=== PATIENT | male | born 1985 | race African-American/Black ===

== ENCOUNTER 2018-03-19 11:21 | Inpatient (IN) ==
[2018-03-19] MEDS ORDERED: Clindamycin 600 mg/NS Premix 600 MG/50 ML PIGGYBACK IV.SIG ONE (12:44)
--- NOTE | 2018-03-19 12:51 | ED ---
HPI General Chief complaint: Dental/Oral Stated complaint: dental pain/ infection Time Seen by Provider: 03/19/18 12:35 Source: patient and RN notes reviewed Mode of arrival: ambulatory Limitations: no limitations History of Present Illness HPI Narrative: 32-year-old male presents to the emergency department for evaluation of facial swelling and dental pain. Patient states that he cracked his right back molar yesterday he was picking up pieces of his tooth. He says the last night, he started with lower facial swelling. He states it felt like a ball. States it is slightly improved now, but still present. He reports 10/ 10 pain. No fevers. He has no chronic medical problems and takes no prescribed medications. No other symptoms or complaints. Moderate severity. 2 1. Broken and painful Onset (ago): day(s) (1) Duration: constant Severity: moderate Severity scale (1-10): 10 Relieving factors: nothing Exacerbating factors: chewing and swallowing Associated symptoms: gum swelling and other (Facial swelling) Treatment prior to arrival: oral analgesic (Ibuprofen) Related Data Home Medications Medication Instructions Recorded Confirmed Tylenol 1 tab PO DIRECTED 03/19/18 03/19/18 Allergies Allergy/AdvReac Type Severity Reaction Status Date / Time No Known Allergies Allergy none Uncoded 03/19/18 12:18 Review of Systems ROS: all other systems reviewed are negative PMFSH Medical History Medical History Patient denies medical problems (Acute) Surgical History Surgical History No history of previous surgery (Acute) Social History Social History Substance History: No History of Abuse Smoking Status: Current every day smoker Tobacco Type: Cigarettes How Often Do You Have a Drink Containing Alcohol: 2 to 4 times a month Recent Travel in [facility] within the Last 8 Weeks: No Recent Out of Country Travel within the Last 8 Weeks: No Immunization History Tetanus Immunization: Unsure Hx Influenza Vaccine This Season: No Exam Narrative Exam Narrative: GENERAL: Well-nourished, well-developed male patient, afebrile SKIN: Focused skin assessment warm/dry. HEAD: Normocephalic. Atraumatic. Patient has right lower facial swelling that extends beyond the mandibular edge. ENT: Mucosa pink and moist. No erythema or exudates. No uvular edema. No uvular , palatal, or tonsillar deviation. Airway patent. Nasal turbinates appear normal without nasal blood, purulent drainage or septal hematoma. Bilateral tympanic membranes clear without erythema or perforation. Tooth #32 is broken. He is tender to palpation over the gingiva. He does have some trismus noted. EYES: No scleral icterus. No injection or drainage. NECK: Supple, trachea midline. No JVD or lymphadenopathy. CARDIOVASCULAR: Regular rate and rhythm without murmurs, gallops, or rubs. RESPIRATORY: Breath sounds equal bilaterally. No accessory muscle use. Lung sounds are clear to auscultation. GASTROINTESTINAL: Abdomen soft, non-tender, nondistended. MUSCULOSKELETAL: No cyanosis, or edema. Course Initial Documented Vital Signs Temperature 97.4 F L 03/19/18 12:15 Pulse Rate 72 03/19/18 12:15 Respiratory Rate 18 03/19/18 12:15 Blood Pressure 114/57 L 03/19/18 12:15 Pulse Oximetry 100 03/19/18 12:15 Last Documented Vital Signs Temperature 97.4 F L 03/19/18 12:15 Pulse Rate 72 03/19/18 12:15 Respiratory Rate 18 03/19/18 12:15 Blood Pressure 114/57 L 03/19/18 12:15 Pulse Oximetry 99 03/19/18 12:53 Medical Decision Making SAM Attestation SAM supervised visit: Yes Attestation: I, Dr. Oneill, have reviewed the advance practice practitioner's documentation and am in agreement, met with the patient face to face, made the diagnosis, and the medical decision making was done by me. *My assessment and Findings: Patient seen and examined by me in addition to Maddie RAMIREZ. 32 year old male has palpable mass/fluid collection beneath the angle of the jaw on the right. C/W abscess. Has elevated WBC. Small amount of trismus but is protecting his airway well. Clindamycin has been given. Pursuing admission at this time. MDM Narrative Medical decision making narrative: 32-year-old male presents to the emergency department for evaluation of dental pain and facial swelling. On exam, he does have facial swelling that extends beyond the mandibular edge. IV access obtained. CBC, BMP are ordered and pending. Patient is given clindamycin 600 mg IV. Patient is given [place] 5/[address] for [address] soft tissue neck with IV contrast is ordered and pending. CBC shows leukocytosis of 14.8. BMP shows no acute abnormality. CT soft tissue neck shows a 2 cm area of what is felt to be a phlegmon associated with anterior margin of the right submandibular gland. I discussed results my attending physician, Dr. Oneill, who also examined patient. He agrees this feels like a submandibular abscess associated with the dental infection. He recommends admission for IV antibiotics. Patient agrees to this. I discussed the case with Dr. Rodríguez, hospitalist. He accepted admission, would like craniofacial to be notified of patient. Call was placed to Dr. Edmond. I spoke to Dr. Edmond's nurse, Andreia, who will call me back. Dr. Edmond's nurse called back and states that Dr. Edmond would like the patient to be transferred to the main hospital and he will see the patient. Medical Screen Exam Complete: Yes Emergency Medical Condition: Yes Differential Diagnosis Differential Diagnosis: Abscess versus Quan's angina versus dentalgia Medical Records Medical records reviewed: Yes I reviewed the patient's medical records. Lab Data Result diagrams: 03/19/18 13:15 03/19/18 13:15 Lab Results 03/19/18 03/19/18 Range/Units 13:15 13:15 CBC w Diff Auto diff final WBC 14.8 H (4.0-11.0) th/mm3 RBC 4.33 L (4.50-5.90) mil/mm3 Hgb 14.6 (13.0-17.0) gm/dL Hct 44.9 (39.0-51.0) % MCV 103.7 H (80.0-100.0) fL MCH 33.7 (27.0-34.0) pg MCHC 32.5 (32.0-36.0) % RDW 13.0 (11.6-17.2) % Plt Count 165 (150-450) th/mm3 MPV 9.2 (7.0-11.0) fL Neut % (Auto) 76.6 H (16.0-70.0) % Lymph % (Auto) 12.0 (9.0-44.0) % [place] % (Auto) 6.1 (0.0-8.0) % Eos % (Auto) 0.7 (0.0-4.0) % Baso % (Auto) 4.6 H (0.0-2.0) % Neut # (Auto) 11.3 H (1.8-7.7) th/mm3 Lymph # (Auto) 1.8 (1.0-4.8) th/mm3 [place] # (Auto) 0.9 (0.0-0.9) th/mm3 Eos # (Auto) 0.1 (0.0-0.4) th/mm3 Baso # (Auto) 0.7 H (0.0-0.2) th/mm3 WBC Differential . Differential Comment . Sodium 139 (136-145) meq/L Potassium 4.1 (3.5-5.1) meq/L Chloride 103 (98-107) meq/L Carbon Dioxide 29.2 (21.0-32.0) meq/L Anion Gap 7 (5-15) meq/L BUN 14 (7-18) mg/dL Creatinine 1.00 (0.60-1.30) mg/dL Estimated GFR Greater than 89 (>89) mL/min Random Glucose 73 L (74-106) mg/dL Calcium 8.7 (8.5-10.1) mg/dL Imaging Data Radiologist's impression: Soft Tissue Neck CT 03/19/18 12:44 CONCLUSION: 1. 2 cm area of what is felt to be phlegmon associated with the anterior margin of the right submandibular gland. I do not feel this has liquefied into an abscess at this point. If the patient's clinical symptoms persist a repeat CT in several days may be beneficial to see if this has liquefied. 2. Suspected polyp involving the left maxillary sinus and left nasal cavity as detailed above. Discharge Plan Discharge Disposition Patient Disposition: 30 Still Patient Discharge Details Diagnosis: Dental abscess Physicians Team ED Provider: Jhonathan Oneill ED Midlevel Provider: Maddie Tapia Primary Care Provider: Primary Care Michelle Acosta Attending Provider: Tayla Rodríguez Status ED Status: Admitted Patient
[2018-03-19 13:29] LABS: Baso # (Auto) 0.7 th/mm3 (0.0-0.2); Baso % (Auto) 4.6 % (0.0-2.0); Eos # (Auto) 0.1 th/mm3 (0.0-0.4); Eos % (Auto) 0.7 % (0.0-4.0); Hematocrit 44.9 % (39.0-51.0); Hemoglobin 14.6 gm/dL (13.0-17.0); Lymph # (Auto) 1.8 th/mm3 (1.0-4.8); Mean Corpuscular HGB Conc 32.5 % (32.0-36.0); Mean Corpuscular Hemoglobin 33.7 pg (27.0-34.0); Mean Corpuscular Volume 103.7 fL (80.0-100.0); Mean Platelet Volume 9.2 fL (7.0-11.0); Mono # (Auto) 0.9 th/mm3 (0.0-0.9); Mono % (Auto) 6.1 % (0.0-8.0); Neut # (Auto) 11.3 th/mm3 (1.8-7.7); Neut % (Auto) 76.6 % (16.0-70.0); Platelet Count 165 th/mm3 (150-450); Red Blood Count 4.33 mil/mm3 (4.50-5.90); White Blood Count 14.8 th/mm3 (4.0-11.0)
[2018-03-19 13:45] LABS: Chloride 103 meq/L (98-107); Sodium 139 meq/L (136-145)
[2018-03-19 13:50] LABS: Anion Gap 7 meq/L (5-15); Blood Urea Nitrogen 14 mg/dL (7-18); Calcium 8.7 mg/dL (8.5-10.1); Carbon Dioxide 29.2 meq/L (21.0-32.0); Glucose,Random 73 mg/dL (74-106)
[2018-03-19 13:51] LABS: Potassium 4.1 meq/L (3.5-5.1)
[2018-03-19 13:53] LABS: Glomerular Filtration Rate Greater Than 89 mL/min (>89)
--- NOTE | 2018-03-19 14:25 | CT ---
EXAM DATE: 03/19/2018 2:15 PM EDT AGE/SEX: 32 years / Male INDICATIONS: Right jaw and neck pain and swelling. Evaluate for abscess. CLINICAL DATA: This is the patient's initial encounter. Patient reports that signs and symptoms have been present for 1 day and indicates a pain score of 10/10. MEDICAL/SURGICAL HISTORY: None. None. RADIATION DOSE: 11.82 CTDI (mGy) COMPARISON: No prior exams available for comparison. TECHNIQUE: Helical acquisition was performed using a multirow detector CT scanner during the adminis tration of 60 ml Omnipaque 350 (iohexol) nonionic water-soluble contrast as a single exam dose. Usi ng automated exposure control and adjustment of the mA and/or kV according to patient size, radiation dose was kept as low as reasonably achievable to obtain optimal diagnostic quality images. DICOM fo rmat image data is available electronically for review and comparison. FINDINGS: There is a 2.1 x 1.6 x 1.2 cm oval-shaped area of low density involving the submandibular aspects of the mandible to the right. This projects just anterior to the submandibular gland. Hounsfield units a re not that of water. There is complete opacification of the left maxillary sinus with soft tissue li ke density extending into the left nasal cavity and cephalad to the left ethmoid air cells. The remai magdaleno paranasal sinuses are clear. Mastoid air cells are clear. No adenopathy involving the neck. Uppe r aerodigestive tract is patent. Lung apices are clear. CONCLUSION: 1. 2 cm area of what is felt to be phlegmon associated with the anterior margin of the right submand ibular gland. I do not feel this has liquefied into an abscess at this point. If the patient's clinic al symptoms persist a repeat CT in several days may be beneficial to see if this has liquefied. 2. Suspected polyp involving the left maxillary sinus and left nasal cavity as detailed above. Electronically signed by: Vijay Schmidt MD 03/19/2018 2:24 PM EDT
[2018-03-19] MEDS ORDERED: Acetaminophen 325 MG Tablet PO PRN (15:11)
[2018-03-19] MEDS ORDERED: Bisacodyl 10 MG Supp RECTAL PRN (15:11)
[2018-03-19] MEDS ORDERED: Morphine Inj 4 MG/ML Vial IV.PUSH ONE (15:58)
[2018-03-19] MEDS: Ampicillin/Sulbactam Inj 3 GM in Sodium Chloride 0.9% Inj 100 ML IV.SIG SCH ×2 (16:18→23:09)
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
[2018-03-20] MEDS: Morphine Sulfate Inj 2 MG/ML Vial IV.PUSH PRN ×2 (04:15→09:47)
[2018-03-20] MEDS: Ampicillin/Sulbactam Inj 3 GM in Sodium Chloride 0.9% Inj 100 ML IV.SIG SCH ×4 (04:16→21:25)
--- NOTE | 2018-03-20 10:24 | P.CON ---
History of Present Illness Service: Oral & Maxillofacial Surgery Consult date: 03/20/18 Requesting Physician: Maddie Tapia Reason for Consult: Right facial pain and swelling Primary Care Provider: No Primary Care Physician Chief Complaint: Right jaw and neck pain with swelling History of Present Illness: 32 yo M with no significant past medical history who presents with pain associated with the right jaw and right mandibular wisdom tooth. Patient reports that he fractured the tooth over a year ago but over the past few days has had significant pain and yesterday began having swelling in the right side of his neck. He attempted to remove the pieces of tooth on his own but was unable to completely remove the tooth. He endorses difficulty swallowing and opening his mouth. He denies any difficulty breathing. He notes primarily tenderness over the right angle of the jaw. He notes episodes of diaphoresis Upon presentation to ED patient had a leukocytosis to 14.8. CT scan of the face was obtained which showed a collection along the medial aspect of the right mandible adjacent to tooth #32. The oral maxillofacial surgery service was consulted for evaluation and definitive management. Since being started on IV antibiotics yesterday, patient reports some mild improvement in mouth opening but still continues to have pain in the right neck. Review of Systems Constitutional: Reports excessive sweating, Reports fatigue Eyes: Denies blurry vision, Denies change in vision Ears, Nose, Mouth, and Throat: Reports dental pain, Reports difficulty swallowing, Reports facial pain, Reports mouth pain, Reports neck pain Cardiovascular: Denies chest pain Respiratory: Denies shortness of breath Gastrointestinal: Denies abdominal pain PMFSH - History History Provided By: Patient - Medical History Medical History: Medical History (Last Reviewed 03/20/18 @ 07:44 by Erin Hooker) Patient denies medical problems - Surgical History Surgical History: Surgical History (Last Reviewed 03/20/18 @ 07:44 by Erin Hooker) No history of previous surgery - Family History Family History: Family History (Last Updated 03/19/18 @ 23:30 by JAMES Mandujano) Mother Family history of heart disease Other No family history of diabetes mellitus - Tobacco History Second Hand Smoke Exposure: Yes Tobacco Use In Past 30 Days: Yes Smoking Status: Current every day smoker Tobacco Type: Cigarettes - Alcohol History How Often Do You Have a Drink Containing Alcohol: 2 to 4 times a month - Substance Use History Substance History: No History of Abuse - Substance Use Type Marijuana Status: Active Route Used: Inhalation Reason for Use: Calm Down, Feels Good - Travel History Recent Travel in the [place] Within the Last 8 Weeks: No Recent Travel Out of the Country Within the Last 8 Weeks: No - Immunization History Tetanus Immunization: Unsure Hx Influenza Vaccine This Season: No Medications and Allergies Active Medications: Active Medications Acetaminophen (Tylenol) 650 mg PO Q4H PRN PRN Reason: Headache, fever, pain 1-4 Hydrocodone Bitart/Acetaminophen ([place] 5/325) 1 tab PO Q4H PRN PRN Reason: pain > 4 Last Admin: 03/19/18 20:42 Dose: 1 tab Al Hydroxide/Mg Hydroxide (Milk Of Magnesia Liq) 30 ml PO Q12H PRN PRN Reason: Mild Constipation Bisacodyl (Dulcolax Supp) 10 mg RECTAL DAILY PRN PRN Reason: SEVERE CONSITIPATION Dexamethasone Sodium Phosphate (Decadron Inj) 8 mg 0.15 mg/kg (8 mg) IV.PUSH Q8H [facility] Stop: 03/21/18 02:01 Ampicillin Sodium/Sulbactam (Sodium 3 gm/ Sodium Chloride) 100 mls @ 200 mls/ hr IV.SIG Q6H GREG[facility]IO Last Admin: 03/20/18 09:35 Dose: 200 mls/hr Lactulose (Lactulose Liq) 30 ml PO DAILY PRN PRN Reason: SEVERE CONSITIPATION Morphine Sulfate (Morphine Inj) 2 mg IV.PUSH Q4H PRN PRN Reason: BREAKTHROUGH PAIN Last Admin: 03/20/18 09:47 Dose: 2 mg Ondansetron HCl (Zofran Inj) 4 mg IV.PUSH Q6H PRN PRN Reason: NAUSEA OR VOMITING Sennosides (Senokot) 17.2 mg PO Q12H PRN PRN Reason: Moderate Constipation Sodium Chloride (Ns Flush) 2 ml IV.FLUSH PRN PRN PRN Reason: FLUSH AFTER USING IV ACCESS Last Admin: 03/20/18 09:48 Dose: 2 ml Allergies Allergy/AdvReac Type Severity Reaction Status Date / Time No Known Allergies Allergy none Uncoded 03/19/18 12:18 Home Medications Medication Instructions Recorded Confirmed Type Tylenol 1 tab PO DIRECTED 03/19/18 03/19/18 History Physical Exam Vital signs: Vital Signs 03/19/18 12:15 09/05/18 12:53 03/19/18 15:11 Temperature 97.4 F L Pulse Rate 72 89 Respiratory Rate 18 18 Blood Pressure 114/57 L 122/66 Pulse Oximetry 100 99 98 03/19/18 16:43 03/19/18 20:00 03/20/18 00:00 Temperature 98.2 F 98.3 F Pulse Rate 77 79 Respiratory Rate 18 18 18 Blood Pressure 112/71 115/77 Pulse Oximetry 100 99 03/20/18 04:00 03/20/18 05:20 03/20/18 08:00 Temperature 98.5 F 98.2 F Pulse Rate 75 76 Respiratory Rate 18 16 20 Blood Pressure 105/59 L 106/59 L Pulse Oximetry 98 100 Intake & Output 03/19/18 03/20/18 03/20/18 18:59 06:59 18:59 Intake Total 150 / 150 200 / 200 Balance 150 / 150 200 / 200 Weight 55 kg 53.9 kg Intake: IV 150 / 150 200 / 200 Unasyn Inj 3 GM In NS Inj 100 100 / 100 200 / 200 ML @ 200 mls/hr IV.SIG Q6H GREG[facility]IO Rx#:[id number] Cleocin 600 mg/NS Premix 600 mg 50 / 50 In 50 ml @ 100 mls/hr IV.SIG ONCE ONE Rx#:[id number] Other: # Voids 2 Weight On Admission 54 kg Narrative: General: Well-developed, appears mildly uncomfortable. Neurological: Alert and oriented to person, place, and time. HEENT: Head/Face: Normocephalic without trauma. Face symmetric. KVNG~20 mm. Tenderness along the right lateral border of the mandible in the molar region. Eyes: PERRL. EOMI Oral Cavity/Oropharynx: Mucosa pink and well hydrated. Poor oral hygiene. Anterior mandibular crowding of the dentition. #32 grossly decayed, with increased sensitivity to percussion and palpation. Mild sanguinous discharge appreciated from gingiva surrounding tooth #32. Floor of mouth soft, non- elevated. Unable to visualize uvula. Neck: Exquisite tenderness along the right neck in proximity to the sternocleidomastoid. No overlying erythema of the skin. No cervical LAD or thyromegaly. Trachea midline. Cardiovascular: Regular rate. Pulmonary: Normal work of breathing on room air. Abdomen: Soft, non-tender, non-distended. Musculoskeletal: No joint tenderness, deformity, effusions. Full range of motion in shoulder, elbow, hip knee, ankle, hands and feet. Extremities: Warm, well perfused. - Additional findings Additional findings: CT face from 03/19/2018 displays a fluid collection along the medial aspect of the right mandible in the third molar region as well as a periapical radiolucency of tooth #32. Tooth #32 is grossly decayed. Assessment and Plan - Plan 32-year-old male with no significant past medical history who presents with a right pterygomandibular and submandibular abscess of odontogenic origin (tooth # 32). Patient is posted for the operating room for incision and drainage of a right facial abscess and extraction of indicated teeth (#32) on 03/21/2018. Consent obtained in written and verbal format with all risks, benefits, and alternatives discussed with patient including pain, swelling, bleeding, nerve injury, continued infection, alveolar osteitis. Recommendations include: -Please make patient n.p.o. at midnight tonight for OR Agree with continuing Unasyn 3 g IV every 6 hours Decadron 8 mg IV every 8 hours 3 doses -Okay for clear liquid diet now Please obtain daily CBC and CRP -Pain management per primary team Thank you for this consultation. Please contact me at [phone] with any questions or concerns. Saurav Kowalski DDS,
--- NOTE | 2018-03-20 12:06 | P.PNIM ---
Subjective Interval history: f/u; submandibular abscess in no distress. pain is better. no fever. no new complaints. Physical Exam Vital signs: Vital Signs 03/19/18 12:15 03/19/18 12:53 03/19/18 15:11 Temperature 97.4 F L Pulse Rate 72 89 Respiratory Rate 18 18 Blood Pressure 114/57 L 122/66 Pulse Oximetry 100 99 98 03/19/18 16:43 03/19/18 20:00 03/20/18 00:00 Temperature 98.2 F 98.3 F Pulse Rate 77 79 Respiratory Rate 18 18 18 Blood Pressure 112/71 115/77 Pulse Oximetry 100 99 03/20/18 04:00 03/20/18 05:20 03/20/18 08:00 Temperature 98.5 F 98.2 F Pulse Rate 75 76 Respiratory Rate 18 16 20 Blood Pressure 105/59 L 106/59 L Pulse Oximetry 98 100 Intake & Output 03/19/18 03/20/18 03/20/18 18:59 06:59 18:59 Intake Total 150 / 150 200 / 200 100 / 100 Balance 150 / 150 200 / 200 100 / 100 Weight 55 kg 53.9 kg Intake: IV 150 / 150 200 / 200 100 / 100 Unasyn Inj 3 GM In NS Inj 100 100 / 100 200 / 200 100 / 100 ML @ 200 mls/hr IV.SIG Q6H GREGORIO Rx#:[id number] Cleocin 600 mg/NS Premix 600 mg 50 / 50 In 50 ml @ 100 mls/hr IV.SIG ONCE ONE Rx#:[id number] Other: # Voids 2 Weight On Admission 54 kg - Constitutional no acute distress - Routine Respiratory Exam Present: CTA bilaterally - Routine Cardiovascular Exam Present: RRR - Routine Abdominal Exam Present: soft - Routine Extremities Exam Comments: no pedal edema. - Routine Neurological Exam Present: alert, oriented X3 Results - Labs CBC & Chem 7: 03/19/18 13:15 03/19/18 13:15 Laboratory Results - last 24 hr 03/19/18 03/19/18 13:15 13:15 CBC w Diff Auto diff final WBC 14.8 H RBC 4.33 L Hgb 14.6 Hct 44.9 MCV 103.7 H MCH 33.7 MCHC 32.5 RDW 13.0 Plt Count 165 MPV 9.2 Neut % (Auto) 76.6 H Lymph % (Auto) 12.0 [place] % (Auto) 6.1 Eos % (Auto) 0.7 Baso % (Auto) 4.6 H Neut # (Auto) 11.3 H Lymph # (Auto) 1.8 Walker # (Auto) 0.9 Eos # (Auto) 0.1 Baso # (Auto) 0.7 H WBC Differential . Differential Comment . Sodium 139 Potassium 4.1 Chloride 103 Carbon Dioxide 29.2 Anion Gap 7 BUN 14 Creatinine 1.00 Estimated GFR Greater than 89 Random Glucose 73 L Calcium 8.7 - Imaging Impressions Soft Tissue Neck CT 03/19/18 12:44 CONCLUSION: 1. 2 cm area of what is felt to be phlegmon associated with the anterior margin of the right submandibular gland. I do not feel this has liquefied into an abscess at this point. If the patient's clinical symptoms persist a repeat CT in several days may be beneficial to see if this has liquefied. 2. Suspected polyp involving the left maxillary sinus and left nasal cavity as detailed above. Assessment and Plan - Plan Right submandibular abscess - continue Unasyn and Dexamethasone - Analgesia: PRN [place] 5/325 with morphine for breakthrough pain -facial surgery consult appreciated and for OR tomorrow. DVT prophylaxis Discharge Planning: for OR tomorrow per facial surgery.
[2018-03-21] MEDS ORDERED: Chlorhexidine Gluconate 2% 1 Pack (2 Cloths) TOPICAL ONE (01:38)
[2018-03-21] MEDS ORDERED: Sodium Chlor 0.9% Inj 500 ML IV.SIG SCH (02:00)
[2018-03-21 04:02] LABS: Baso % (Auto) 0.1 % (0.0-2.0); Hematocrit 48.5 % (39.0-51.0); Hemoglobin 16.8 gm/dL (13.0-17.0); Lymph # (Auto) 1.5 th/mm3 (1.0-4.8); Lymph % (Auto) 9.6 % (9.0-44.0); Mean Corpuscular HGB Conc 34.7 % (32.0-36.0); Mean Corpuscular Hemoglobin 35.2 pg (27.0-34.0); Mean Corpuscular Volume 101.6 fL (80.0-100.0); Mean Platelet Volume 9.3 fL (7.0-11.0); Mono # (Auto) 0.2 th/mm3 (0.0-0.9); Mono % (Auto) 1.4 % (0.0-8.0); Neut # (Auto) 13.4 th/mm3 (1.8-7.7); Neut % (Auto) 88.9 % (16.0-70.0); Platelet Count 193 th/mm3 (150-450); Red Blood Count 4.77 mil/mm3 (4.50-5.90); Red Cell Distribution Width 13.4 % (11.6-17.2); White Blood Count 15.1 th/mm3 (4.0-11.0)
[2018-03-21] MEDS: Ampicillin/Sulbactam Inj 3 GM in Sodium Chloride 0.9% Inj 100 ML IV.SIG SCH ×4 (04:06→21:36)
[2018-03-21 04:41] LABS: Platelet Estimate Normal (Normal); Platelet Morphology Normal (Normal)
--- NOTE | 2018-03-21 09:17 | P.PNIM ---
Subjective Interval history: in no acute distress. pain is controlled. no fever. Physical Exam Vital signs: Vital Signs 03/20/18 12:00 03/20/18 16:00 03/20/18 20:00 Temperature 97.9 F 97.7 F 97.9 F Pulse Rate 74 69 66 Respiratory Rate 20 20 18 Blood Pressure 107/64 113/64 112/69 Pulse Oximetry 99 99 99 03/20/18 22:00 03/21/18 00:00 03/21/18 04:00 Temperature 97.6 F 97.6 F Pulse Rate 59 L 67 Respiratory Rate 18 18 18 Blood Pressure 101/65 102/56 L Pulse Oximetry 99 100 03/21/18 05:17 03/21/18 08:00 Temperature 98.9 F Pulse Rate 75 Respiratory Rate 18 18 Blood Pressure 108/60 Pulse Oximetry 100 Intake & Output 03/20/18 03/21/18 03/21/18 18:59 06:59 18:59 Intake Total 200 / 200 100 / 100 100 / 100 Balance 200 / 200 100 / 100 100 / 100 Weight 53.1 kg Intake: IV 200 / 200 100 / 100 100 / 100 Unasyn Inj 3 GM In NS Inj 100 200 / 200 100 / 100 100 / 100 ML @ 200 mls/hr IV.SIG Q6H GREGORIO Rx#:[id number] Other: # Voids 2 - Constitutional no acute distress - Routine Respiratory Exam Present: CTA bilaterally - Routine Cardiovascular Exam Present: RRR - Routine Abdominal Exam Present: soft - Routine Extremities Exam Comments: no pedal edema. - Routine Neurological Exam Present: alert, oriented X3 Results - Labs CBC & Chem 7: 03/21/18 03:27 03/19/18 13:15 Laboratory Results - last 24 hr 03/21/18 03/21/18 03:27 03:27 WBC 15.1 H RBC 4.77 Hgb 16.8 D Hct 48.5 MCV 101.6 H MCH 35.2 H MCHC 34.7 RDW 13.4 Plt Count 193 MPV 9.3 Prelim Diff (Auto) Slide review pending Neut % (Auto) 88.9 H Lymph % (Auto) 9.6 [place] % (Auto) 1.4 Eos % (Auto) 0.0 Baso % (Auto) 0.1 Neut # (Auto) 13.4 H Lymph # (Auto) 1.5 [place] # (Auto) 0.2 Eos # (Auto) 0.0 Baso # (Auto) 0.0 WBC Differential . Diff Scan Auto diff confirmed Differential Comment . Platelet Estimate Normal Platelet Morphology Normal C-Reactive Protein 7.68 H Assessment and Plan - Plan Right submandibular abscess - continue Unasyn - received Dexamethasone - Analgesia: PRN [place] 5/325 with morphine for breakthrough pain -facial surgery consult appreciated and for OR today. DVT prophylaxis Discharge Planning: dc home when cleared by oral surgery.
[2018-03-21] MEDS ORDERED: fentaNYL Citrate Inj 100 MCG/2 ML Ampul ONE (13:23)
[2018-03-21] MEDS ORDERED: Lidocaine 2%/Epinephrine 1:200,000 PF Inj 20 ML Vial ONE (13:25)
[2018-03-21] MEDS ORDERED: Succinylcholine Inj 100 MG/5 ML Syringe IV.PUSH ONE (14:10)
[2018-03-21] MEDS ORDERED: Lidocaine PF 1% Inj 5 ML Syringe INFILTRATN ONE (14:10)
[2018-03-21] MEDS: Dextrose 5%/NaCl 0.45% Inj 1,000 ML IV.SIG SCH (15:05)
[2018-03-21 17:29] VITALS: RESP 18
[2018-03-22] MEDS: Dextrose 5%/NaCl 0.45% Inj 1,000 ML IV.SIG SCH (01:54)
[2018-03-22 05:34] VITALS: O2SAT 100
[2018-03-22 08:31] VITALS: BP 106/66; PULSE 67; TEMP 97.4
--- NOTE | 2018-03-22 08:54 | P.PNIM ---
Subjective Interval history: in no acute distress. pain has almost resolved. no fever or other complaints. d/w the RN. Physical Exam Vital signs: Vital Signs 03/21/18 12:00 03/21/18 14:33 03/21/18 14:45 Temperature 97.8 F 97.5 F L Pulse Rate 75 113 H 94 H Respiratory Rate 18 16 14 Blood Pressure 104/60 129/67 117/69 Pulse Oximetry 100 100 100 03/21/18 15:00 03/21/18 15:15 03/21/18 16:00 Temperature 97.5 F L 97.5 F L Pulse Rate 96 H 88 72 Respiratory Rate 14 14 18 Blood Pressure 112/68 114/68 106/69 Pulse Oximetry 100 100 99 03/21/18 20:00 03/21/18 23:19 03/22/18 00:00 Temperature 97.6 F 97.7 F Pulse Rate 72 60 Respiratory Rate 18 18 18 Blood Pressure 104/63 97/62 L Pulse Oximetry 96 99 03/22/18 02:39 03/22/18 02:41 03/22/18 04:00 Temperature 97.6 F Pulse Rate 63 Respiratory Rate 18 18 Blood Pressure 96/60 L Pulse Oximetry 100 03/22/18 08:00 Temperature 97.4 F L Pulse Rate 67 Respiratory Rate 18 Blood Pressure 106/66 Pulse Oximetry 100 Intake & Output 03/21/18 03/22/18 03/22/18 18:59 06:59 18:59 Intake Total 710 / 710 1100 / 1100 Output Total 5 / 5 Balance 705 / 705 1100 / 1100 Weight 54.1 kg Intake: IV 360 / 360 1100 / 1100 Unasyn Inj 3 GM In NS Inj 100 300 / 300 100 / 100 ML @ 200 mls/hr IV.SIG Q6H GREG[facility]IO Rx#:[id number] D5W/1/2 NS Inj 1,000 ML @ 100 1000 / 1000 mls/hr IV.SIG .Q10H GREGORIO Rx#: [id number] LR 1000 mL Inj 1,000 ML @ 30 60 / 60 mls/hr IV.SIG .Q24H GREGORIO Rx#: [id number] Anesthesia Amount 350 / 350 Output: Estimated Blood Loss 5 / 5 Other: # Voids 3 3 Date of Last Bowel Movement 03/21/18 - Constitutional no acute distress - Routine Respiratory Exam Present: CTA bilaterally - Routine Cardiovascular Exam Present: RRR - Routine Abdominal Exam Present: soft - Routine Extremities Exam Comments: no pedal edema. - Routine Neurological Exam Present: alert, oriented X3 Results - Labs CBC & Chem 7: 03/21/18 03:27 03/19/18 13:15 Assessment and Plan - Plan Right submandibular abscess - s/p I/D and tooth extraction - received Unasyn and Dexamethasone -cleared by oral surgery for discharge. DVT prophylaxis Discharge Planning: dc home with f/u with pcp and oral surgery. see med list. d/w the patient and RN. Amos was reviewed.
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
--- NOTE | 2018-03-28 13:39 | MP ---
cc: Slim Edmond DDS DATE OF OPERATION: 03/21/2018 PREOPERATIVE DIAGNOSIS: Infected tooth #32 with a lateral pharyngeal abscess in a buccal space. POSTOPERATIVE DIAGNOSIS: Infected tooth #32 with a lateral pharyngeal abscess in a buccal space. PROCEDURE PERFORMED: Extraction of tooth #32 with incision and drainage. SURGEON: Slim Edmond DDS FLUIDS: 800 mL crystalloid. SPECIMENS: None. COMPLICATIONS: None. JUSTIFICATION: Mr. Hood is a gentleman who comes into the hospital with swelling on the right side of his face, noted tooth pain. He tried to pull it himself, snapped the tooth off; leaving the roots of #32, which is a wisdom tooth, in place. This has subsequently developed an infection. It has continued to worsen, going down his neck. The patient was given IV antibiotics for 48 hours, now taken to the OR to remove the tooth. PROCEDURE IN DETAIL: On 03/21/2018 presents to the holding area, identified the name in his chart; brought to OR #8 where he was intubated by Anesthesia. He was then prepped and draped. Local anesthesia was given; 2% Xylocaine with epinephrine, total of 6 mL. Elevator was used to remove the tooth without difficulty. Incision made in the buccal and the lingual aspect and using a hemostat to open it up, some purulence was drained from the buccal side, nothing on the lingual side. IV antibiotics should resolve most of his infectious process at this time. He was able to open normally prior to intubation. After it was removed, it was irrigated with copious amounts of Peridex. No drains were placed at this time because it was mostly resolved, to allow the open incision areas to just drained on their own. The patient was extubated and taken to the recovery with vital signs stable. RAINA Elizabeth/jonna , 12:27 PM , 12:34 PM
== END 2018-03-22 11:41 | disposition home or self-care (01) ==
LOC: PHEFT 11:21 → PHEDA 15:32 → N05 19:09
PROVIDERS: ADMIT Internal Medicine; ATTEND Internal Medicine
PROC: IDMOUTH (2018-03-21 13:59)